=== PATIENT | male | born 1990 | race Caucasian/White ===

== ENCOUNTER 2021-07-23 10:58 | Emergency (ER) | payer OTHER ==
[~2021-07-23] VITALS: Ht 188 cm; Wt 84.8 kg
== END 2021-07-23 12:24 | disposition home or self-care (01) ==
LOC: ER 10:58
DX: S99.912A Unspecified injury of left ankle, initial encounter (principal); Y93.61 Activity, american tackle football; Y92.321 Football field as the place of occurrence of the external cause